=== PATIENT | female | born 1975 | race Caucasian/White ===

== ENCOUNTER 2018-03-23 14:20 | Emergency (ER) | payer OTHER ==
[~2018-03-23] VITALS: Ht 162.6 cm; Wt 54.4 kg
[2018-03-23] MEDS ORDERED: TRIMOX250 MG PO (14:28)
[2018-03-23] MEDS ORDERED: FLONASE16 GM NS (14:28)
[2018-03-23] MEDS ORDERED: ALLEGRA-D 24 H1 EACH PO (14:29)
== END 2018-03-23 19:04 | disposition home or self-care (01) ==
LOC: ER 14:20
DX: J40 Bronchitis, not specified as acute or chronic (principal)

== ENCOUNTER 2019-12-12 14:02 | Outpatient (CLI) | payer OTHER ==
[~2019-12-12 14:02] MED LIST: ALLEGRA-D 24 H1 EACH PO; FLONASE16 GM NS; TRIMOX250 MG PO
== END 2019-12-12 14:16 | disposition home or self-care (01) ==
LOC: MAMO-SONO 14:02
PROVIDERS: ATTEND Obstetrics & Gynecology
DX: Z12.31 Encounter for screening mammogram for malignant neoplasm of breast (principal); N60.11 Diffuse cystic mastopathy of right breast; N60.12 Diffuse cystic mastopathy of left breast